=== PATIENT | female | born 1995 | race Caucasian/White ===

== ENCOUNTER 2016-08-20 11:08 | Emergency (ER) | payer SELFPAY | END 2016-08-20 12:12 | disposition left against medical advice (07) | LOC: UCEAST 11:08 | DX: R05 Cough (principal); R50.9 Fever, unspecified; Z53.21 Procedure and treatment not carried out due to patient leaving prior to being seen by health care provider ==

== ENCOUNTER 2016-08-20 17:01 | Emergency (ER) | payer SELFPAY ==
[2016-08-20 18:30] VITALS: BP 132/72
--- NOTE | 2016-08-20 18:42 | UC ---
HPI Febrile Illness - HPI Summary HPI Summary: 20 year old female presents complaining of post-nasal drip, slight maxillary sinus congestion which has begun to improve, headache, upper airway cough to clear mucus x 2-3 days. 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 - Allergy/Home Medications Allergies/Adverse Reactions: Allergies Allergy/AdvReac Type Severity Reaction Status Date / Time Acetaminophen [From Percocet] Allergy Intermediate hives, GI Verified 08/20/16 18:23 upset Oxycodone [From Percocet] Allergy Intermediate hives, GI Verified 08/20/16 18:23 upset Penicillins Allergy Intermediate Hives Verified 08/20/16 18:23 Home Medications: Home Medications guaiFENesin ER TAB [Mucinex*] 1 tab PO PRN 08/20/16 [History] PMH/Surg Hx/FS Hx/Imm Hx Previously Healthy: Yes Endocrine/Hematology History: Denies: Hx Anticoagulant Therapy, Hx Blood Disorders, Hx Blood Transfusions, Hx Bone Marrow Disease, Hx Diabetes, Hx Systemic Lupus Erythematosus, Hx Sickle Cell Disease, Hx Thyroid Disease, Hx Anemia, Hx Unexplained Bleeding, Hx Coagulopothy, Autoimmune Disease, Other Endocrine/Hematological Disorders Cardiovascular History: Denies: Hx Hypertension Respiratory History: Denies: Hx Asthma - Surgical History Surgery Procedure, Year, and Place: [place] Teeth Extraction Infectious Disease History: No Infectious Disease History: Denies: Traveled Outside the [place] in Last 30 Days - Social History Alcohol Use: None Substance Use Type: Reports: None Smoking Status (MU): Never Smoked Tobacco Have You Chewed or Dipped Tobacco in the LAST YEAR: No Have You Smoked in the Last Year: No Household Exposure: No Review of Systems Constitutional: Fatigue Skin: Negative Eyes: Negative ENT: Nasal Discharge Respiratory: Cough Cardiovascular: Negative Gastrointestinal: Negative Genitourinary: Negative Motor: Negative Neurovascular: Negative Musculoskeletal: Negative Neurological: Negative Psychological: Negative All Other Systems Reviewed And Are Negative: Yes Physical Exam Triage Information Reviewed: Yes Appearance: Well-Appearing, No Pain Distress Vital Signs: Initial Vital Signs Temp 99.8 F 08/20/16 18:26 Pulse 104 08/20/16 18:26 Resp 20 08/20/16 18:26 BP 132/72 08/20/16 18:26 Pulse Ox 98 08/20/16 18:26 Vital Signs Reviewed: Yes Eye Exam: Normal Eyes: Positive: Conjunctiva Clear ENT: Positive: Hearing grossly normal, Pharynx normal, Nasal congestion, Nasal drainage, TMs normal Dental Exam: Normal Neck: Positive: Supple, Nontender, No Lymphadenopathy Respiratory: Positive: Chest non-tender, Lungs clear, Normal breath sounds, No respiratory distress Cardiovascular: Positive: RRR, No Murmur, Pulses Normal Abdomen Description: Positive: Nontender, No Organomegaly, Soft Bowel Sounds: Positive: Present Musculoskeletal: Positive: Strength Intact, ROM Intact, No Edema Neurological: Positive: Alert, Muscle Tone Normal Psychological Exam: Normal Skin Exam: Normal Course/Dx - Diagnoses Clinic Provider Diagnoses: Upper respiratory infection Discharge - Discharge Plan Condition: Stable Disposition: HOME Patient Education Materials: Upper Respiratory Infection (ED) Forms: *Work Release Referrals: Joey CASTRO,Rowdy Vázquez [Primary Care Provider] - If Needed Additional Instructions: Increase your fluid intake. A cool mist humidifier may make your lungs more comfortable. An expectorant (cough medicine that loosens phlegm) can help. If you smoke, STOP!!! Call or return if you develop increasing fever, shortness of breath, chest pain , bloody sputum, or otherwise worsen. If you have not improved at all after several days, contact your primary care physician or return here.
== END 2016-08-20 19:13 | disposition home or self-care (01) ==
LOC: UCEAST 17:01
DX: J06.9 Acute upper respiratory infection, unspecified (principal); Z88.6 Allergy status to analgesic agent; Z88.5 Allergy status to narcotic agent; Z88.0 Allergy status to penicillin
CPT/HCPCS: 99212; G0463

== ENCOUNTER 2018-02-05 13:41 | Emergency (ER) | payer OTHER ==
[2018-02-05 14:20] VITALS: BP 137/61
--- NOTE | 2018-02-05 15:07 | UC ---
UC General HPI - HPI Summary HPI Summary: Patient presents requesting a test. Patient states her last period of memory was mid December. Patient states she doesn't remember she had her period in January. Patient states she took a test at home that was positive and so she wanted checked here. Patient is . Patient has an 8-month-old child with her today. Patient is not breast-feeding. Patient states she uses control pills but no she missed a couple. Patient is not using any tobacco production. Patient without any complaints. No nausea vomiting. No abdominal pain. No vaginal discharge itching or odor. No concern for sexual transmitted diseases. 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. Patient states she is retired and are moving and does not have a new RUBBER STAMP DIE INSPECTOR established. Pt's medications reviewed this visit - History of Current Complaint Chief Complaint: UCGeneralIllness Stated Complaint: PERSONAL Time Seen by Provider: 02/05/18 14:45 Hx Obtained From: Patient Hx Last Menstrual Period: unsure- ? December Pain Intensity: 0 - Allergy/Home Medications Allergies/Adverse Reactions: Allergies Allergy/AdvReac Type Severity Reaction Status Date / Time oxycodone Allergy GI Upset Verified 02/05/18 14:14 Penicillins Allergy Unknown Verified 02/05/18 14:14 Reaction Details PMH/Surg Hx/FS Hx/Imm Hx Previously Healthy: Yes Other History Of: Negative For: Anticoagulant Therapy - Surgical History Surgical History: Yes Surgery Procedure, Year, and Place: [place] Teeth Extraction - Family History Known Family History: Positive: Hypertension - Social History Lives: With Family Alcohol Use: None Substance Use Type: None Smoking Status (MU): Heavy Every Day Tobacco Smoker Type: Cigarettes Amount Used/How Often: 1/2 PPD Have You Smoked in the Last Year: No Household Exposure Type: Cigarettes - Immunization History Vaccination Up to Date: Yes Review of Systems Constitutional: Negative, Other - no complaints, requesting sully Is Patient Immunocompromised?: No All Other Systems Reviewed And Are Negative: Yes Physical Exam - Summary Physical Exam Summary: Vital Signs Reviewed: Yes A+Ox3, no distress Eyes: Conjunctiva Clear ENT: Hearing grossly normal neck: supple Respiratory: Positive: No respiratory distress, No accessory muscle use CTA throughout no w/r Cardiovascular: skin color reflect adequate perfusion RRR nl s1 s2 no m/r abd soft + BS NT/ND no guarding no rebound Musculoskeletal Exam: SCOTT x 4 without difficulty Neurological: Positive: Alert, ambulatory without difficulty Psychological: Positive: Normal Response To Family Skin: Positive: no rash, no ecchymosis Triage Information Reviewed: Yes Vital Signs: Initial Vital Signs Temp 99 F 02/05/18 14:14 Pulse 98 02/05/18 14:14 Resp 14 02/05/18 14:14 BP 137/61 02/05/18 14:14 Pulse Ox 100 02/05/18 14:14 Course/Dx - Course Course Of Treatment: Patient presents requesting a test. Her test was positive. Patient encouraged to stay well hydrated. Avoid smoking. Patient given prescription for vitamins. Patient is going to call her OB who is retiring and see if the reference. Patient also given a seems a referral. Patient encouraged to follow up return with questions or concerns. - Differential Dx - Multi-Symptom Provider Diagnoses: early undetermined Discharge - Sign-Out/Discharge Documenting (check all that apply): Patient Departure - Discharge Plan Condition: Stable Disposition: HOME Prescriptions: Pnv No.121/Iron/Folic Acid [ Multivitamin Tablet] 1 each PO DAILY #30 tablet Patient Education Materials: (ED) Referrals: Tiera Theodore MD [Primary Care Provider] - Melva Lauren MD [Medical Doctor] - Additional Instructions: - stay well hydrated. drink plenty of non-alcoholic, non-caffinated beverages - work to decrease cigarette smoking - take pre- vitamins as prescribed - Contact your prototype special build or the doctor you have been referred to for follow- up - Billing Disposition and Condition Condition: STABLE Disposition: Home
== END 2018-02-05 15:15 | disposition home or self-care (01) ==
LOC: UCCORT 13:41
DX: Z32.01 Encounter for pregnancy test, result positive (principal); F17.210 Nicotine dependence, cigarettes, uncomplicated; Z88.0 Allergy status to penicillin; Z88.5 Allergy status to narcotic agent
CPT/HCPCS: 81003; 84702; 87086; 99212; G0463

== ENCOUNTER 2019-01-08 07:11 | Emergency (ER) | payer OTHER ==
[2019-01-08 07:21] VITALS: BP 129/91
--- NOTE | 2019-01-08 07:36 | UC ---
Skin Complaint HPI - HPI Summary HPI Summary: swollen gland under her chin for 2 days the area is painful , pain is 4 out of 10 , worse by touching the area, nothing make is better, had a pimple on her chin for few days no fever, no chills - History of Current Complaint Chief Complaint: UCSkin Time Seen by Provider: 01/08/19 07:24 Stated Complaint: CHIN PAIN Hx Obtained From: Patient Hx Last Menstrual Period: 11/2018 ?: No Onset/Duration: Gradual Onset, Lasting Days - 2, Still Present Timing: Constant Onset Severity: Moderate Current Severity: Moderate Pain Intensity: 5 Location: Discrete - under her chin Character: Swelling, Pain, Raised, Painful Aggravating Factor(s): Touch Alleviating Factor(s): Nothing Associated Signs & Symptoms: Positive: Tenderness. Negative: Nausea, Vomiting, Numbness, Fever, Chills - Allergy/Home Medications Allergies/Adverse Reactions: Allergies Allergy/AdvReac Type Severity Reaction Status Date / Time oxycodone Allergy GI Upset Verified 01/08/19 07:18 Penicillins Allergy Unknown Verified 01/08/19 07:18 Reaction Details PMH/Surg Hx/FS Hx/Imm Hx Previously Healthy: Yes Other History Of: Negative For: Anticoagulant Therapy - Surgical History Surgical History: Yes Surgery Procedure, Year, and Place: [place] Teeth Extraction - Family History Known Family History: Positive: Hypertension - Social History Alcohol Use: None Substance Use Type: None Smoking Status (MU): Former Smoker Type: Cigarettes Amount Used/How Often: 1/2 PPD Have You Smoked in the Last Year: No When Did the Patient Quit Smoking/Using Tobacco: 2018 Household Exposure Type: Cigarettes - Immunization History Vaccination Up to Date: Yes Review of Systems All Other Systems Reviewed And Are Negative: Yes Constitutional: Positive: Negative Eyes: Positive: Negative ENT: Positive: Negative Respiratory: Positive: Negative Is Patient Immunocompromised?: No Physical Exam Triage Information Reviewed: Yes Appearance: Well-Appearing, No Pain Distress, Well-Nourished Vital Signs: Initial Vital Signs Temp 98.3 F 01/08/19 07:19 Pulse 79 01/08/19 07:19 Resp 18 01/08/19 07:19 BP 129/91 01/08/19 07:19 Pulse Ox 99 01/08/19 07:19 Vital Signs Reviewed: Yes Eye Exam: Normal Eyes: Positive: Conjunctiva Clear ENT: Positive: Normal ENT inspection, Hearing grossly normal, Pharynx normal Neck: Positive: Supple, Enlarged Nodes @ - submental lymphnode enlargement / tenderness Respiratory Exam: Normal Respiratory: Positive: Lungs clear, Normal breath sounds Cardiovascular: Positive: RRR, No Murmur, Pulses Normal Skin: Positive: Other - small abscess on mid chin area Course/Dx - Diagnoses Provider Diagnosis: Lymphadenopathy of head and neck, Abscess of chin Discharge - Sign-Out/Discharge Documenting (check all that apply): Patient Departure All imaging exams completed and their final reports reviewed: No Studies - Discharge Plan Condition: Stable Disposition: HOME Prescriptions: Clindamycin Cap(NF) [Clindamycin Cap 300 mg Cap(NF)] 300 mg PO TID #21 cap Patient Education Materials: Lymphadenopathy (ED) Referrals: No Primary Care Phys,NOPCP [Primary Care Provider] - If Needed Additional Instructions: enlarged submental lymph node due to a small abscess on your chin may take antibiotics for 7 days, take Ibuprofen as needed for pain and inflammation - Billing Disposition and Condition Condition: STABLE Disposition: Home
== END 2019-01-08 07:35 | disposition home or self-care (01) ==
LOC: UCCORT 07:11
DX: R59.1 Generalized enlarged lymph nodes (principal); L02.01 Cutaneous abscess of face
CPT/HCPCS: 99212; G0463